=== PATIENT | female | born 1960 ===

== ENCOUNTER 2021-12-29 10:02 | Day surgery (SDC) | payer OTHER ==
[~2021-12-29] VITALS: Ht 149.9 cm; Wt 76.2 kg
[~2021-12-29 10:02] MED LIST: COZAAR25 MG PO; CRESTOR20 MG PO; DICY20TA PO; ECOTRIN81 MG PO; FARXIGA10 MG PO; GABAPENTIN300 M2 PO; PEPCID40 MG PO; PROAIR HFA8.5 GM IH; SINGULAIR 10MG10 MG PO; SYNTHROID125 MCG PO
[2021-12-29] MEDS ORDERED: NAPR500T14 PO (14:34)
[2021-12-29] MEDS ORDERED: AMOX1TAB5 PO (14:34)
== END 2021-12-29 19:40 | disposition home or self-care (01) ==
LOC: CIR.AMB 10:02
PROVIDERS: ATTEND Obstetrics & Gynecology
DX: D25.0 Submucous leiomyoma of uterus (principal); Z20.822 Contact with and (suspected) exposure to COVID-19; E78.5 Hyperlipidemia, unspecified; Z88.8 Allergy status to other drugs, medicaments and biological substances; J45.909 Unspecified asthma, uncomplicated; G47.33 Obstructive sleep apnea (adult) (pediatric); Z99.89 Dependence on other enabling machines and devices; Z87.891 Personal history of nicotine dependence; E03.9 Hypothyroidism, unspecified; E11.9 Type 2 diabetes mellitus without complications